=== PATIENT | male | born 1995 | race Caucasian/White ===

== ENCOUNTER 2017-08-10 11:37 | Emergency (ER) | payer BC ==
[~2017-08-10] VITALS: Ht 177.8 cm; Wt 61.2 kg
[2017-08-10 12:06] VITALS: BP 133/72
[2017-08-10] MEDS ORDERED: DIPHTH,PERTUSS(ACELL),TET TOX 0.5 ML DISP.SYRIN. VAX IM ONE (12:45)
[2017-08-10] MEDS ORDERED: LIDOCAINE 1% Multi-Dose 20 ML VIAL. IJ ONE (12:45)
--- NOTE | 2017-08-10 13:13 | PHYS DOC ---
Past History Past Medical History: No Pertinent History Past Surgical History: No Surgical History Alcohol Use: None Drug Use: None Adult General Chief Complaint Chief Complaint: LACERATION/AVULSION HPI HPI 22-year-old otherwise healthy male presenting to the emergency department today after sustaining a laceration to his left hand and right forearm while he was trying to fix a toilet. He reports that the toilet broke while he was moving it and it cut through his hand and forearm. He denies any other injuries during the event. He has some pain with associated bleeding. His pain is sharp shooting mild to moderate and the bleeding is improved by pressure. Past medical history: None Surgical history: None Social history: Patient graduated from high school and currently works as a electrical linesworker. He denies smoking drinking or drug use. Review of systems is negative for chest pain shortness of breath fevers or chills. All other review of systems is negative unless otherwise noted in history of present illness. ED course: 22-year-old male presenting to the emergency department with 2 lacerations to his left hand and right forearm. No other traumatic injuries identified on examination. The wounds were washed out with sterile saline. No signs of foreign body or tendon laceration on inspection with good lighting with good hemostasis. Normal neurovascular status distally. 2 second cap refill. Both hands able to make it a okay, given a thumbs up, and cross fingers. Normal sensation in both hands. The wounds were sutured. Sutures to be removed in 7 days. The patient was then discharged home in stable condition to follow up with their primary care physician. They were to return if their symptoms worsened or if they were concerned for any reason. [id number] discharge instructions and return precautions were given. Patient's questions were answered to their satisfaction. Patient is comfortable with plan. Review of Systems Review of Systems SEE ABOVE. Current Medications Current Medications Current Medications Medications (Trade) Dose Ordered Sig/Migue Start Time Stop Time Status Last Admin Dose Admin Diphtheria/ Tetanus/Acell Pertussis (Boostrix) 0.5 ml ONCE ONCE 08/10/17 12:45 08/10/17 12:47 DC 08/10/17 13:08 0.5 ML Lidocaine HCl 10 ml 1X ONCE 08/10/17 12:45 08/10/17 12:47 DC 08/10/17 13:07 10 ML Allergies Allergies Allergies Coded Allergies Type Severity Reaction Last Updated Verified No Known Drug Allergies 4/24/18 No Physical Exam Physical Exam SEE ABOVE Constitutional: Well developed, well nourished, no acute distress, non-toxic appearance. [] HENT: Normocephalic, atraumatic, bilateral external ears normal, oropharynx moist, no oral exudates, nose normal. [] Eyes: PERRLA, EOMI, conjunctiva normal, no discharge. [] Neck: Normal range of motion, no tenderness, supple, no stridor. [] Cardiovascular:Heart rate regular rhythm, no murmur [] Lungs & Thorax: Bilateral breath sounds clear to auscultation [] Abdomen: Bowel sounds normal, soft, no tenderness, no masses, no pulsatile masses. [] Skin: Warm, dry, no erythema, no rash. [] Back: No tenderness, no CVA tenderness. [] Extremities: Patient has a 4.5 cm laceration of the right volar forearm. Patient has a 1.5 cm laceration of the dorsum of the right hand. See above for further details. Neurovascular status of breath. Neurovascularly intact. Neurologic: Alert and oriented X 3, normal motor function, normal sensory function, no focal deficits noted. [] Psychologic: Affect normal, judgement normal, mood normal. [] Current Patient Data Vital Signs Vital Signs Date Time Temp Pulse Resp B/P (MAP) Pulse Ox O2 Delivery O2 Flow Rate FiO2 08/10/17 12:06 98.4 84 22 100 Room Air EKG EKG [] Radiology/Procedures Radiology/Procedures [] Course & Med Decision Making Course & Med Decision Making Pertinent Labs and Imaging studies reviewed. (See chart for details) [] Dragon Disclaimer Dragon Disclaimer This electronic medical record was generated, in whole or in part, using a voice recognition dictation system. Departure Departure: Impression: Primary Impression: Laceration Additional Impressions: Laceration of hand, left Laceration of forearm, right Disposition: 01 HOME, SELF-CARE Condition: STABLE Referrals: PCP,NO (PCP) Patient Instructions: Laceration Care, Adult Additional Instructions: Thank you for allowing us to participate in your care today. Followup with your primary care physician in 7 days for suture removal. Call your Primary Doctor tomorrow and inform them of your visit today. If you do not have a primary care provider you can ask for a list of our primary care providers. Return to the emergency department you have any new or concerning findings. This should be evaluated by the primary care physician and any necessary consulting services for continued management within a few days after discharge. Return to emergency room if you have any new or concerning symptoms including but not limited to fever, chills, nausea, vomiting, intractable pain, any new rashes, chest pain, shortness of air, uncontrolled bleeding, difficulty breathing, and/or vision loss. If at any time, you are having difficulty getting into your primary care doctor or a specialist, return to the emergency department. Laceration Repair Lac Repair Indication: Laceration of the right volar forearm and laceration of the left dorsum of the hand. Procedure: Patient was appropriately positioned with 1% lidocaine for anesthesia around both wounds. The area was washed out with irrigated saline. Both lacerations were closed using a simple unerupted technique. The laceration on the right forearm was approximately 4.5 cm. Laceration on the left dorsum of the hand was approximately 1.5 cm. Patient was neurovascularly intact in both extremities with 2 second cap refill. No evidence of foreign body with good lighting and with good hemostasis. The area was then dressed with nonadherent dressing. The patient tolerated the procedure well without any complications. Problem Qualifiers VINCENT MAHONEY MD Aug 10, 2017 13:13
== END 2017-08-10 13:20 | disposition home or self-care (01) ==
LOC: ER 11:37
DX: S61.412A Laceration without foreign body of left hand, initial encounter (principal); S51.811A Laceration without foreign body of right forearm, initial encounter; W26.8XXA Contact with other sharp object(s), not elsewhere classified, initial encounter; Y93.89 Activity, other specified; Y99.8 Other external cause status; Y92.89 Other specified places as the place of occurrence of the external cause
CPT/HCPCS: 12002; 90471; 90715; 99283-25